=== PATIENT | male | born 1960 | race Caucasian/White ===

== ENCOUNTER 2017-05-14 10:18 | Day surgery (SDC) | payer BC ==
[~2017-05-14 10:18] MED LIST: Lactated Ringers 1,000 ML IV SCH
[2017-05-14] MEDS ORDERED: Propofol 200 MG/20 ML SDV ONE (11:22)
[2017-05-14] MEDS ORDERED: fentaNYL 100 MCG/2 ML SDV ONE (11:22)
--- NOTE | 2017-05-14 18:59 | OR ---
PREOPERATIVE DIAGNOSIS: History of diverticulitis, previous sigmoid resection, family history of polyps-father. POSTOPERATIVE DIAGNOSIS: Mild diverticulosis in left colon, otherwise normal exam. PROCEDURE PROPOSED: Total flexible colonoscopy. PROCEDURE DONE: Total flexible colonoscopy. INDICATION: This is a 56-year-old gentleman who 7 years ago had a sigmoid resection for significant diverticular disease by myself. He has had 1 colonoscopy since then, which was about 5 years ago. He also has a family history of father with polyps and comes in for colonic surveillance. TECHNIQUE: The patient was brought to the endoscopy suite, sedated per [employer] with MAC anesthesia using propofol. The flexible video colonoscope was then passed transanally and under visualization advanced to the cecum. Examination revealed a normal ascending, transverse, descending colon. The sigmoid colon was predominantly surgically absent and appear that the anastomosis was at about 15 cm from the anal verge. He did have a few diverticular orifices noted in that left side of his colon and the rectum was normal. The scope was then withdrawn. He tolerated the procedure well. There was no evidence of any polyps throughout the exam. FINAL IMPRESSION: 1. Family history of polyps. 2. Minimal left colon diverticulosis with previous sigmoid resection. PLAN: I feel the patient should continue colonic surveillance every 5 years hereafter due to his family history of polyps. SCM: 05/14/2017 12:21:26 MODL: 05/14/2017 18:18:48 /[id number]
== END 2017-05-14 13:35 | disposition home or self-care (01) ==
LOC: VM.SDS 10:18
PROVIDERS: ATTEND Surgery
DX: K57.30 Diverticulosis of large intestine without perforation or abscess without bleeding (principal); Z83.71 Family history of colonic polyps; G47.33 Obstructive sleep apnea (adult) (pediatric); Z79.899 Other long term (current) drug therapy; Z98.890 Other specified postprocedural states; Z87.891 Personal history of nicotine dependence
CPT/HCPCS: 45378; J2704; J3010; J7120